=== PATIENT | female | born 1975 | race Caucasian/White ===

== ENCOUNTER 2016-09-24 03:56 | Emergency (ER) | payer MEDICAID, OTHER ==
[~2016-09-24] VITALS: Ht 152.4 cm; Wt 109.1 kg
[~2016-09-24 03:56] MED LIST: BECL8.7A5 IH; LEVO50TA4 PO
[2016-09-24] MEDS ORDERED: ACET-48 PO (04:03)
[2016-09-24] MEDS ORDERED: IPRA4AER IH (04:03)
[2016-09-24 07:03] VITALS: BP 135/84
== END 2016-09-24 07:06 | disposition home or self-care (01) ==
LOC: EMS 03:57
DX: L03.313 Cellulitis of chest wall (principal); J45.909 Unspecified asthma, uncomplicated; F17.210 Nicotine dependence, cigarettes, uncomplicated; Z88.5 Allergy status to narcotic agent
CPT/HCPCS: 99281; 99283